=== PATIENT | female | born 1940 | race Caucasian/White ===

== ENCOUNTER 2017-01-24 23:55 | Emergency (ER) | payer MEDICARE ==
[2017-01-25] MEDS ORDERED: OXYMETAZOLINE HCL 0.05% 30 SPRAYS/BOT NS ONE (00:08)
[2017-01-25] MEDS ORDERED: PROPARACAINE HCL 0.5% 300 GTTS/BOT SOLN.DROP ONE (01:23)
== END 2017-01-25 02:03 | disposition home or self-care (01) ==
LOC: ED 23:55
DX: R04.0 Epistaxis (principal); I10 Essential (primary) hypertension; Z87.891 Personal history of nicotine dependence
CPT/HCPCS: 99283 ×2; 30901 ×2; A9270 ×2